=== PATIENT | female | born 1980 | race Hispanic/Latino ===

== ENCOUNTER 2022-01-09 05:55 | Observation (INO) | payer MEDICARE ==
[2022-01-08 13:26] LABS: BASOPHILS % (AUTO) 0.9 % (0.0-5.0); EOSINOPHILS % (AUTO) 1.6 % (0.0-8.0); HEMATOCRIT 37.5 % (36-48); LYMPHOCYTES % (AUTO) 38.3 % (21.0-51.0); MEAN CORPUSCULAR HEMOGLOBIN 27.1 pg (27.0-33.0); MEAN CORPUSCULAR VOLUME 84.7 fL (79-99); MONOCYTES % (AUTO) 6.3 % (3.0-13.0); NEUTROPHILS % (AUTO) 52.7 % (40.0-77.0); PLATELET COUNT (AUTO) 260 K/uL (130-400); RED BLOOD CELL COUNT(AUTO) 4.43 MIL/uL (4.00-5.50); RED CELL DISTRIBUTION WIDTH 14.8 % (11.0-15.5); WHITE BLOOD COUNT (AUTO) 5.6 K/uL (4.8-10.8)
[2022-01-08 13:28] LABS: APPEARANCE,URINE Cloudy (CLEAR); BILIRUBIN,URINE Negative (NEGATIVE); COLOR,URINE Yellow (YELLOW); GLUCOSE, URINE (UA) Negative (NEGATIVE); KETONES,URINE Negative (NEGATIVE); LEUKOCYTE ESTERASE ,URINE Trace (NEGATIVE); NITRATE,URINE Negative (NEGATIVE); OCCULT BLOOD,URINE Negative (NEGATIVE); PROTEIN,URINE Negative (NEGATIVE); UROBILINOGEN,URINE 0.2 mg/dL (0.2-1.0)
[2022-01-08 13:42] LABS: PROTHROMBIN TIME 10.9 SEC (9.6-11.6)
[2022-01-08 13:43] LABS: PARTIAL THROMBOPLASTIN TIME 29.5 SEC (26.3-35.5)
[2022-01-08 13:54] LABS: BACTERIA,URINE Rare /HPF (None Seen); MUCUS,URINE Few LPF (None Seen); RBC,URINE 0-1 /HPF (0-1); SQUAMOUS EPITHELIAL CELL,UR Few /HPF (0-2); WBC,URINE 0-1 /HPF (0-1)
[2022-01-08 15:02] VITALS: BP 140/75
[2022-01-09] VITALS (24 sets, daily range): BP systolic 85–129; BP diastolic 43–73
[~2022-01-09] VITALS: Ht 162.6 cm; Wt 87.6 kg
[~2022-01-09 05:55] MED LIST: FERS325 PO
[2022-01-09] MEDS ORDERED: LACTATED RINGERS 1000ML 1,000 ML IV SCH (06:00)
[2022-01-09] MEDS: CEFAZOLIN SODIUM 1 GM VIAL IVP SCH ×2 (07:00→10:00)
[2022-01-09] MEDS ORDERED: MIDAZOLAM HCL 1 MG/ML 2ML VIAL ONE (09:37)
[2022-01-09] MEDS ORDERED: ROCURONIUM 10MG/1ML SYR 10 MG/ML ML ONE ×2 (09:39→10:16)
[2022-01-09] MEDS ORDERED: PROPOFOL 10 MG/ML 20ML VIAL IV ONE (09:39)
[2022-01-09] MEDS ORDERED: FENTANYL CITRATE PF 50 MCG/1 ML 5ML AMP IV ONE (09:39)
[2022-01-09] MEDS ORDERED: ONDANSETRON 4MG INJ ONE (09:39)
[2022-01-09] MEDS ORDERED: KETAMINE 50MG/ML SYRINGE 50 MG/ML DISP.SYRIN IV ONE (09:41)
[2022-01-09] MEDS ORDERED: MORPHINE PF 100MG/10ML AMP IV ONE (09:41)
[2022-01-09] MEDS ORDERED: GLYCOPYRROLATE 1 MG/5 ML SYRINGE ONE ×2 (10:01→10:49)
[2022-01-09] MEDS ORDERED: EPHEDRINE SULFATE 50 MG/ML AMPULE ONE (10:04)
[2022-01-09] MEDS ORDERED: NEOSTIGMINE 5MG/5ML SYR IV ONE (10:50)
[2022-01-09] MEDS ORDERED: MEPERIDINE-PF 25 MG/ML SYG ONE ×2 (11:28→11:40)
[2022-01-09] MEDS ORDERED: MEPERIDINE-PF 75 MG/ML SYG ONE (13:10)
[2022-01-09] MEDS: PROMETHAZINE HCL 25 MG/ML 1ML AMPULE IM PRN ×2 (13:25→18:51)
[2022-01-09] MEDS: MEPERIDINE-PF 75 MG/ML SYG IM PRN ×2 (13:25→18:51)
[2022-01-09] MEDS ORDERED: SIMETHICONE 80 MG TAB.CHEW PO PRN (13:30)
[2022-01-09] MEDS ORDERED: ONDANSETRON 4MG INJ IVP PRN (13:30)
[2022-01-09] MEDS ORDERED: DOCUSATE SODIUM 100 MG CAP PO PRN (13:30)
[2022-01-09] MEDS ORDERED: PROMETHAZINE HCL 25 MG/ML 1ML AMPULE IM PRN (13:30)
[2022-01-09] MEDS ORDERED: IBUPROFEN 600 MG TABLET PO PRN (13:30)
[2022-01-09] MEDS ORDERED: ACETAMINOPHEN WITH CODEINE 1 TAB TAB PO PRN (13:30)
[2022-01-09] MEDS ORDERED: BISACODYL 10 MG SUPP.RECT RC PRN (13:30)
[2022-01-09] MEDS: DEXTROSE 5 %-0.45 % NACL 1,000 ML IV PRN (14:05)
[2022-01-10 04:25] VITALS: BP 105/51
[2022-01-10] MEDS ORDERED: ACETAMINOPHEN WITH CODEINE 1 TAB TAB PO PRN (04:30)
[2022-01-10] MEDS ORDERED: IBUPROFEN 800 MG TAB PO PRN (04:30)
[2022-01-10] MEDS ORDERED: HYDROCODONE/ACETAMINOPHEN 5/325 MG TAB PO PRN (04:30)
[2022-01-10] MEDS: DEXTROSE 5 %-0.45 % NACL 1,000 ML IV PRN (06:22)
[2022-01-10 06:46] LABS: HEMATOCRIT 34.2 % (36-48); MEAN CORPUSCULAR HEMOGLOBIN 27.1 pg (27.0-33.0); MEAN CORPUSCULAR HGB CONC 32.2 g/dL (32.0-36.0); MEAN CORPUSCULAR VOLUME 84.2 fL (79-99); RED BLOOD CELL COUNT(AUTO) 4.06 MIL/uL (4.00-5.50); RED CELL DISTRIBUTION WIDTH 15.4 % (11.0-15.5); WHITE BLOOD COUNT (AUTO) 13.7 K/uL (4.8-10.8)
[2022-01-10 07:49] VITALS: BP 119/64
[2022-01-10] MEDS ORDERED: ACET-2079 PO (10:29)
[2022-01-10 11:18] VITALS: BP 105/60
== END 2022-01-10 15:10 | disposition home or self-care (01) ==
LOC: DAH 05:55 → UNDOADMOB 05:56 → WSH 05:56 → DAH 05:56 → WSH 05:57 → UNDODISOB 01-10 15:10
PROVIDERS: ADMIT Obstetrics & Gynecology; ATTEND Obstetrics & Gynecology
DX: N92.1 Excessive and frequent menstruation with irregular cycle (principal); Z20.822 Contact with and (suspected) exposure to COVID-19; D25.9 Leiomyoma of uterus, unspecified; D50.9 Iron deficiency anemia, unspecified; N81.6 Rectocele; G89.29 Other chronic pain; M54.9 Dorsalgia, unspecified; N81.5 Vaginal enterocele; Z90.710 Acquired absence of both cervix and uterus; Z79.899 Other long term (current) drug therapy; Z98.890 Other specified postprocedural states
CPT/HCPCS: 85025; 85610; 85730; 86850; 86900; 86901; 87426; 81001; 36415 ×2; 57250; 58263; 96372; 85027; A6260; G0378 ×31; G0379; A4351; A4606; A4344; J7120; J3010; J0690; J3490 ×3; J2710; J2550; J2250; J2704; J2274; J2405; J2175 ×4; A4215; A4223; A4222; A4221; A4663; A4600; A4510